=== PATIENT | male | born 1950 | race Caucasian/White ===

== ENCOUNTER 2024-06-26 09:36 | Day surgery (SDC) | payer OTHER ==
[2024-06-26] MEDS ORDERED: Lactated Ringers 1,000 ML IV SCH (10:00)
[2024-06-26] MEDS ORDERED: Lactated Ringers 1,000 ML IV ONE (10:05)
[2024-06-26 10:51] LABS: ANION GAP 17.4 MEQ/L (5-15); Calcium 9.1 mg/dL (8.4-10.2); Creatinine 1 1.03 mg/dL (0.66-1.25); EST GLOMERULAR FILTRATION RATE 76.2 ML/MIN
[2024-06-26 10:53] LABS: Potassium 4.3 mmol/L (3.5-5.1)
[2024-06-26] MEDS: TETRACAINE 0.5% STERI-UNIT SOL OP ONE ×2 (10:58→11:21)
[2024-06-26] MEDS: Ak-Dilate OPHTHALMIC*** 0.71 ML, Cyclogyl 1% OPHTH SOL 0.71 ML, GATIFLOXACIN 0.5% OPHTH... OP SCH (11:02)
[2024-06-26] MEDS: Sodium Chloride 0.9% 1000 ML 1,000 ML IV SCH (11:22)
[2024-06-26] MEDS ORDERED: Epinephrine Preservative Free 1 MG/ML INTRAOP NR (12:00)
[2024-06-26] MEDS ORDERED: TRIAMCINOLONE 15 MG/ML INJ INTRAOP NR (12:00)
[2024-06-26] MEDS ORDERED: DEXTENZA OP NR (12:00)
[2024-06-26] MEDS ORDERED: DEXMEDETOMIDINE 80 MCG/20ML-NS IV NR (12:00)
[2024-06-26] MEDS ORDERED: VIGAMOX/BSS 0.15% SYR IO NR (12:00)
[2024-06-26] MEDS ORDERED: Zofran 4 MG/2 ML VIAL IV PRN (12:00)
[2024-06-26] MEDS ORDERED: BETADINE 5% OPHTHALMIC 30 ML OP NR (12:00)
[2024-06-26] MEDS ORDERED: Versed 2 MG/2 ML Injection ONE (13:01)
[2024-06-26] MEDS ORDERED: Zofran 4 MG/2 ML VIAL ONE (13:26)
[2024-06-26] MEDS ORDERED: dexAMETHasone sodium phosphate ONE (13:26)
[2024-06-26] MEDS ORDERED: Xylocaine-Mpf 2% 5 Ml Vial ONE (13:26)
[2024-06-26] MEDS ORDERED: SUBLIMAZE 100 MCG/2 ML ONE (13:26)
[2024-06-26] MEDS ORDERED: propofoL IV ONE (13:26)
[2024-06-26 14:38] VITALS: RESP 16
[2024-06-26] MEDS: ACETAZOLAMIDE 250 MG TABLET PO ONE (14:38)
[2024-06-26 14:49] VITALS: BP 153/77; PULSE 78; TEMP 97.3; O2SAT 98
== END 2024-06-26 15:00 | disposition home or self-care (01) ==
LOC: SDC 09:36
PROVIDERS: ATTEND Ophthalmology
DX: H25.811 Combined forms of age-related cataract, right eye (principal); E11.9 Type 2 diabetes mellitus without complications; I10 Essential (primary) hypertension
CPT/HCPCS: 36415; 80048; 82947; 93005; C1780; J0171; J1096; J1100; J2250; J2405; J2704; J3010; A9270-GY